=== PATIENT | female | born 1965 | race Caucasian/White ===

== ENCOUNTER → 2016-07-22 | Outpatient (CLI) | payer BC ==
[~2016-07-22] MED LIST: AMPH10TA2 PO; ESTR0.05 TOP; PROG1CAP2 PO
--- NOTE | 2016-07-22 16:57 | MAMMOGRAPHY REPORT ---
BILATERAL DIGITAL SCREENING MAMMOGRAM TOMOSYNTHESIS WITH CAD: 07/22/2016 CLINICAL HISTORY: Routine screening. Patient has no complaints. TECHNIQUE: Breast tomosynthesis in addition to standard 2D mammography was performed. Current study was also evaluated with a Computer Aided Detection (CAD) system. COMPARISON: Comparison is made to exams dated: 07/18/2015 mammogram, 04/25/2015 ultrasound, 04/25/2015 mammogram, 07/30/2014 mammogram, 07/30/2014 ultrasound, and 07/17/2014 mammogram - [facility]. BREAST COMPOSITION: The tissue of both breasts is heterogeneously dense, which may obscure small ma sses. FINDINGS: The parenchymal pattern is unchanged. No developing mass, architectural distortion or clu ster of suspicious microcalcifications is seen in either breast. IMPRESSION: ACR BI-RADS CATEGORY 2: BENIGN There is no mammographic evidence of malignancy. A 1 year screening mammogram is recommended. The p atient will receive written notification of the results. Approximately 10% of breast cancers are not detected with mammography. A negative mammographic repor t should not delay biopsy if a clinically suggestive mass is present. Soraya Thornton M.D. ay/:07/22/2016 16:12:18 Buildings And Grounds Superintendent: Rut Bartlett, [facility] letter sent: Normal 1/2 BI-RADS Code: ACR BI-RADS Category 2: Benign
== END | disposition home or self-care (01) ==
LOC: C.MAMM 07:34
PROVIDERS: ATTEND Obstetrics & Gynecology
DX: Z12.31 Encounter for screening mammogram for malignant neoplasm of breast (principal)

== ENCOUNTER → 2017-03-08 | Outpatient (CLI) | payer BC ==
--- NOTE | 2017-03-08 09:41 | DIAGNOSTIC IMAGING REPORT ---
CHEST 2 VIEWS ROUTINE HISTORY: 51 years-old Female Z01.818 G51.3 preoperative exam. No acute chest complaints. COMPARISON: Chest radiograph 06/21/2014 TECHNIQUE: PA and lateral views of the chest FINDINGS: Heart and mediastinal and hilar silhouettes are within normal limits. There is no pneumothorax, pleural effusion, focal airspace consolidation or overt pulmonary edema. Ill-defined opacity of the left lung base on the frontal view suggest composite density artifact. Lungs are mildly hyperinflated with diaphragmatic flattening. The bones of the chest are grossly intact. IMPRESSION: Hyperinflation without acute cardiopulmonary process. The above report was generated using voice recognition software. It may contain grammatical, syntax or spelling errors. Electronically signed by: Shaggy Sanchez M.D. 03/08/2017 9:39 AM Dictated Date/Time: 03/08/2017 9:37 AM
[2017-03-08 11:07] LABS: BASO % 0.3 %; BASO ABS # 0.02 K/uL (0-0.2); COMPLETE YES; EOS % 2.5 %; HEMATOCRIT 40.9 % (37-47); IG% 0.2 %; LYMPH % 15.2 %; LYMPH ABS # 0.99 K/uL (1.2-3.4); MEAN CELL VOLUME 93.2 fL (80-100); MEAN CORPUSCULAR HEMOGLOBIN 29.8 pg (25-34); MEAN PLATELET VOLUME 10.5 fL (7.4-10.4); MONO % 6.4 %; NEUT % 75.4 %; PLATELET COUNT 208 K/uL (130-400); RED BLOOD COUNT 4.39 M/uL (4.2-5.4); WHITE BLOOD COUNT 6.53 K/uL (4.8-10.8)
[2017-03-08 11:16] LABS: PARTIAL THROMBOPLASTIN RATIO 1.1
[2017-03-08 11:25] LABS: URINE APPEARANCE CLEAR (CLEAR); URINE COLOR DK YELLOW; URINE NITRITE NEG (NEG); URINE SPECIFIC GRAVITY 1.023 (1.000-1.030); UROBILINOGEN NEG (NEG)
[2017-03-08 11:31] LABS: MANUAL MICROSCOPIC REQUIRED? NO; REVIEW REQ? NO; URINE BILIRUBIN NEG (NEG)
[2017-03-08 11:32] LABS: ALT/SGPT 32 U/L (12-78); AST/SGOT 22 U/L (15-37); BLOOD UREA NITROGEN 15 mg/dl (7-18); BUN/CREATININE RATIO 16.1 (10-20); CALCIUM 8.8 mg/dl (8.5-10.1); CARBON DIOXIDE 26 mmol/L (21-32); CHLORIDE 104 mmol/L (98-107); GLUCOSE 112 mg/dl (70-99); POTASSIUM 3.6 mmol/L (3.5-5.1); SODIUM 138 mmol/L (136-145)
[2017-03-08 11:35] LABS: ALB/GLOB RATIO 1.2 (0.9-2); ALKALINE PHOSPHATASE 74 U/L (45-117)
== END | disposition home or self-care (01) ==
LOC: C.RADBC 08:58
PROVIDERS: ATTEND Nurse Practitioner Family
DX: Z01.818 Encounter for other preprocedural examination (principal); G51.3 Clonic hemifacial spasm

== ENCOUNTER → 2017-03-17 | Outpatient (CLI) | payer BC | END | disposition home or self-care (01) | LOC: C.CPL 09:58 | PROVIDERS: ATTEND Nurse Practitioner Family | DX: Z01.818 Encounter for other preprocedural examination (principal); G51.3 Clonic hemifacial spasm; R94.31 Abnormal electrocardiogram [ECG] [EKG] ==

== ENCOUNTER 2021-12-22 17:13 | Observation (INO) ==
[2021-12-22] MEDS ORDERED: SODIUM CHLORIDE 0.9% 1000ML 1,000 ML IV STA (17:53)
[2021-12-22] MEDS ORDERED: MoRPHine SULFATE 4 MG/ML 1 ML CARP\\VIAL IV STA (17:53)
[2021-12-22 18:46] LABS: Alanine Aminotransferase 11 U/L (7-52); Albumin Globulin Ratio 1.9 (0.9-2); Albumin Level 4.6 gm/dl (3.4-5.0); Alkaline Phosphatase 87 U/L (34-104); Anion Gap 10 (3-11); Aspartate Aminotransferase 12 U/L (13-39); BUN Creatinine Ratio 21.4 (10-20); Bilirubin,Total 0.5 mg/dl (0.2-1.0); Blood Urea Nitrogen 18 mg/dl (6-23); Calcium 9.5 mg/dl (8.5-10.1); Carbon Dioxide 25 mmol/L (21-32); Chloride 104 mmol/L (98-107); Creatinine Clr Calc Pharmacy 77.2 ml/min; Est GFR (African American) 91.3 ml/min; Est GFR (Non-African American) 78.8 ml/min; Globulin 2.4 gm/dl (2.5-4.0); Glucose 96 mg/dl (70-99(Fasting)); Lipase 13 U/L (11-82); Potassium 3.6 mmol/L (3.5-5.1); Sodium 139 mmol/L (136-145)
--- NOTE | 2021-12-22 19:06 | Emergency Department Note ---
Impression & Plan Acute abdominal pain, Nausea, Abdominal lymphadenopathy ED Provider Note CHIEF COMPLAINT: Lower abdominal pain, nausea HISTORY OF PRESENTING ILLNESS: This is a 56-year-old female who presents to the emergency department via EMS with complaint of low abdominal pain that has been ongoing for the past 4-5 days but got severe today. She has been taking Pepto- Bismol for the past few days for her symptoms, which she states was helping, but it did not help today. Patient states she had a sensation like she might need to move her bowels and she went to the bathroom, but was unable to have a bowel movement. She did urinate at that time without difficulty. She states the pain became severe and she describes it as cramping and sharp, she was doubled over in pain and also became diaphoretic. She states she was unable to get comfortable in any position with the pain. The pain is in her central lower abdomen overlying the bladder and radiates to the right side slightly. She denies any pain going into her back. She denies any numbness, tingling, or weakness of the extremities. She denies any chest pain, shortness of breath, palpitations, dizziness or syncope. EMS gave the patient IV fentanyl and Zofran, which did improve her symptoms somewhat. She currently rates her pain level 6/10 (decreased from 9/10) after receiving fentanyl and states she is feeling significantly better. REVIEW OF SYSTEMS: A complete 10 point review of systems was reviewed with the patient with pertinent positives and negatives as per history of present illness. All else were negative. PAST MEDICAL HISTORY: ADHD, history of D&C and umbilical hernia repair SOCIAL HISTORY: Lives at home with family, denies tobacco use ALLERGIES: Reviewed in chart and with the patient PHYSICAL EXAM: CONSTITUTIONAL: Pleasant and cooperative. Nontoxic-appearing and in no acute distress. Non-diaphoretic. Well appearing and well nourished. HEENT: Normocephalic, atraumatic. NECK: Supple, full active range of motion without discomfort. RESPIRATORY: Clear to auscultation bilaterally with no wheezing, crackles, rhonchi or stridor. Equal expansion bilaterally. CARDIOVASCULAR: Regular rate and rhythm with no murmurs, rubs or gallops. Normal peripheral perfusion. No edema. GASTROINTESTINAL: Tender to palpation in the suprapubic and right lower quadrant abdomen, slight guarding in RLQ. No rebound tenderness. Abdomen is soft and nondistended. No palpable masses or HSM. Bowel sounds present in all quadrants. No CVA tenderness bilaterally. MUSCULOSKELETAL: Full range of motion of all joints without discomfort. INTEGUMENTARY: No rash or other significant dermatologic conditions noted. NEUROLOGIC: Alert and oriented X 4 with normal affect. Normal strength and sensation in all 4 extremities. Normal speech. ED COURSE AND MEDICAL DECISION MAKING: CC: Patient presenting with complaint of abdominal pain DIFFERENTIAL DIAGNOSIS: Includes, but not limited to appendicitis, ovarian cyst, PID, infections, diverticulitis, UTI, bowel obstruction, aortic pathology, inflammatory bowel disease, renal colic, hernia, volvulus, constipation, gastroenteritis, colitis, among others. INTERPRETATION OF LABS: No leukocytosis, no anemia, normal platelets, no significant electrolyte abnormalities, normal renal function, normal liver enzymes and lipase. UA appears to be a contaminated specimen, urine culture pending. EKG: Shows normal sinus rhythm with a rate of 84 bpm, normal intervals, no ectopy, T wave abnormalities do not appear to be significantly changed when compared to previous EKG from 03/17/2017 by my interpretation. MEDICATION RECONCILIATION: I attest that I have personally reviewed the patient's current medication list. INITIAL VITAL SIGNS REVIEW: I reviewed the patient's initial vital signs and interpret them as follows: T: Afebrile; BP: Normotensive; HR: Within normal limits; RR: Within normal limits; Pulse Ox: Within normal limits on room air. MDM SUMMARY: Patient was evaluated at bedside, history and physical exam performed. Patient is alert and oriented, in no acute distress, resting calmly in the stretcher. She is afebrile and nontoxic-appearing, and hemodynamically stable. She has moderate tenderness to palpation in the lower abdomen, most tender over the right lower quadrant with slight guarding. No acute abdomen. Cardiac monitoring: An order was placed for continuous cardiac monitoring. The monitor shows a rate of 77 bpm with normal sinus rhythm. Orders were placed for labs, UA, EKG and troponin to evaluate for cardiac causes, IV fluid bolus for hydration and IV morphine for pain, CT abdomen/pelvis with IV contrast to evaluate for abdominal pain. Patient discussed with Dr. Lynn, who agrees with my assessment, plan, and disposition. Labs and imaging reviewed, no leukocytosis, no significant abnormalities on labs. No UTI. CT imaging demonstrates soft tissue stranding and prominent lymph nodes in the right lower quadrant which may represent secondary findings of appendicitis, though the appendix is not definitely identified. I spoke on the phone with Dr. Christopher, general surgery, who did not feel that the patient needed urgent surgical intervention, and recommended admitting her to the medicine team for observation and IV antibiotics. I reassessed the patient and updated her on results and plan for observation, she was agreeable. She did decline the morphine that was ordered earlier, but states she would like something for pain. IV Toradol was ordered. IV cefoxitin was also ordered for antibiotic coverage. I spoke with the [facility] regarding admission, they agreed to evaluate the patient. Patient was stable at the time of admission. The chart was completed utilizing [employer] Speech voice recognition software. Grammatical errors, random word insertions, pronoun errors, and incomplete sentences are an occasional consequence of this system due to software limitations, ambient noise, and hardware issues. Any formal questions or concerns about the content, text, or information contained within the body of this dictation should be directly addressed to the nurse practitioner for clarification. Past Med/Surg History Surgical History (Updated 02/02/20 @ 15:08 by Debra Miranda) History of cryosurgery cervix History of D&C D&E History of detached retina repair History of laparoscopy exploratory History of oral surgery Tooth extraction History of umbilical hernia repair Hx of LASIK Family History (Updated 02/02/20 @ 15:09 by Debra Miranda) Grandfather (Paternal) Coronary heart disease Grandfather (Maternal) Coronary heart disease Father Diaphragmatic hernia Denies family history of Ovarian cancer Breast cancer Colorectal cancer Social History (Updated 02/12/21 @ 14:30 by ENRICO Farah) Smoking Status: Never smoker Second Hand Exposure: No; Do You Dip or Chew Tobacco: No; Hx Alcohol Use: Yes Alcohol type: wine Hx Substance Use: No Preferred Language: Kyrgyz 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 Beliefs That Will Affect Care: None Current Living Situation: Family Current Living Situation Comment: Single family home with and kids Other Information That Helps Us Care for You: Yes (Increase in lower GI issues in last year) Feels Safe at Home: Yes Safety Concerns: Feels Safe At This Time Assistive Devices: None Allergies Allergies Allergy/AdvReac Type Severity Reaction Status Date / Time shrimp Allergy Intermediate RASH;LIPS Verified 02/12/21 14:29 SWELL Sulfa (Sulfonamide Allergy Mild "SULFA Verified 02/12/21 14:29 Antibiotics) DRUGS": RASH shellfish derived Allergy Verified 02/12/21 14:29 Home Meds Home Medications Medication Instructions Recorded Confirmed calcium citrate 315 mg-vitamin D3 tab PO 02/02/20 09/19/21 5 mcg (200 unit) tablet dextroamphetamine-amphetamine 15 PO .TAKE 1 TABLET DAILY 02/02/20 09/19/21 mg tablet DIRECTED. multivitamin (Multiple Vitamins 1 tab PO DAILY 02/02/20 09/19/21 tablet) omega-3 fatty acids PO 02/02/20 09/19/21 vitamin B complex PO 02/02/20 09/19/21 doxycycline calcium PO 02/08/20 09/19/21 Previous Rx's Medication Instructions Recorded estradiol 0.05 mg/24 hr semiweekly 1 patch transdermal 2XWK #24 ea 02/12/21 transdermal patch (Vivelle-Dot) progesterone micronized 200 mg 200 mg PO .COMPLEX #30 caps 07/04/21 capsule Results & Data (ED) Vital Signs Vital Signs - 24 hr 12/22/21 17:19 12/22/21 18:26 12/22/21 19:42 Temperature 36.4 C L Temperature Source Temporal Artery Scan Pulse Rate 74 Pulse Rate [Apical] 85 Pulse Rhythm Regular Pulse Strength Normal Respiratory Rate 20 18 Respiratory Effort / Characteristics Non-Labored Spontaneous Non-Labored Respiratory Depth Normal Normal Respiratory Pattern Regular Blood Pressure 119/81 Blood Pressure [Left Arm] 114/73 Blood Pressure Mean 93 Blood Pressure Mean [Left Arm] 86 Blood Pressure Position Sitting Pulse Oximetry 100 98 98 Oxygen Delivery Method Room Air Room Air Room Air Sepsis Recent Fever Within 48 Hours No Sepsis New/Unexplained Change in Mental Status No Sepsis Action Taken by Nursing No Action Required 12/22/21 23:21 Temperature Temperature Source Pulse Rate Pulse Rate [Apical] 91 H Pulse Rhythm Pulse Strength Respiratory Rate 22 Respiratory Effort / Characteristics Respiratory Depth Respiratory Pattern Blood Pressure Blood Pressure [Left Arm] 97/62 L Blood Pressure Mean Blood Pressure Mean [Left Arm] 73 Blood Pressure Position Pulse Oximetry 98 Oxygen Delivery Method Room Air Sepsis Recent Fever Within 48 Hours Sepsis New/Unexplained Change in Mental Status Sepsis Action Taken by Nursing Laboratory Data Result diagrams: 12/23/21 09:20 12/23/21 09:20 Lab Results 12/22/21 12/22/21 12/22/21 Range/Units 17:35 17:35 21:04 WBC 6.49 (4.8-10.8) K/ul RBC 5.30 H (3.93-5.22) M/uL Hgb 15.7 (12.0-16.0) g/dl Hct 48.5 H (34.1-44.9) % MCV 91.5 (80.0-100.0) fL MCH 29.6 (25.0-34.0) pg MCHC 32.4 (32.0-36.0) g/dL RDW Std Deviation 43.8 (36.4-46.3) fL RDW Coeff of Jade 12.9 (11.5-14.5) % Plt Count 164 (130-400) K/uL MPV 10.8 (9.4-12.3) fL Immature Gran % (Auto) 0.2 % Neut % (Auto) 80.2 % Lymph % (Auto) 14.2 % Millard % (Auto) 3.2 % Eos % (Auto) 2.0 % Baso % (Auto) 0.2 % Neut # (Auto) 5.21 (1.4-6.5) K/uL Lymph # (Auto) 0.92 L (1.2-3.4) K/uL Millard # (Auto) 0.21 L (0.24-0.82) K/uL Eos # (Auto) 0.13 (0-0.50) K/uL Baso # (Auto) 0.01 (0-0.2) K/uL Immature Gran # (Auto) 0.01 (0.00-0.02) K/uL Sodium 139 (136-145) mmol/L Potassium 3.6 (3.5-5.1) mmol/L Chloride 104 (98-107) mmol/L Carbon Dioxide 25 (21-32) mmol/L Anion Gap 10 (3-11) BUN 18 (6-23) mg/dl Creatinine 0.84 (0.6-1.2) mg/dl Est Cr Clr Drug Dosing 77.2 ml/min Est GFR ( Amer) 91.3 ml/min Est GFR (Non-Af Amer) 78.8 ml/min BUN/Creatinine Ratio 21.4 H (10-20) Glucose 96 (70-99(Fasting)) mg/dl Calcium 9.5 (8.5-10.1) mg/dl Total Bilirubin 0.5 (0.2-1.0) mg/dl AST 12 L (13-39) U/L ALT 11 (7-52) U/L Alkaline Phosphatase 87 (34-104) U/L Troponin I High Sens < 2.3 (0-14) pg/ml Total Protein 7.0 (6.0-8.3) gm/dl Albumin 4.6 (3.4-5.0) gm/dl Globulin 2.4 L (2.5-4.0) gm/dl Albumin/Globulin Ratio 1.9 (0.9-2) Lipase 13 (11-82) U/L Urine Color Yellow Urine Appearance Clear (Clear) Urine pH 5.5 (4.5-7.5) Ur Specific [place] 1.023 (1.000-1.030) Urine Protein Negative (Negative) Urine Glucose (UA) Negative (Negative) Urine Ketones Negative (Negative) Urine Blood Negative (Negative) Urine Nitrite Negative (Negative) Urine Bilirubin Negative (Negative) Urine Urobilinogen Negative (Negative) Ur Leukocyte Esterase Trace H (Negative) Urine WBC (Auto) 1-5 (0-5) /hpf Urine RBC (Auto) 0-4 (0-4) /hpf U Hyaline Cast (Auto) 5-10 H (0-5) /lpf U Epithel Cells (Auto) >30 H (0-5) /lpf Urine Bacteria (Auto) 1+ H (Negative) Administered Medications Acetaminophen (Acetaminophen 325 Mg Tab) 650 mg PO Q4H PRN PRN Reason: Pain or Fever Stop: 01/22/22 01:57 Last Admin: 12/23/21 03:39 Dose: 650 mg Documented By: ADAMA Sodium Chloride (Nss 1000ml) 1,000 mls @ 125 mls/hr IV .Q8H NUVIA Stop: 01/21/22 21:59 Last Admin: 12/23/21 06:14 Dose: 125 mls/hr Documented By: Infusion: 12/23/21 06:12 Dose: 125 mls/hr Documented By: Admin: 12/22/21 22:12 Dose: 125 mls/hr Documented By: DENA Cefoxitin Sodium (Mefoxin) 2,000 mg in 60 mls @ 100 mls/hr IV Q6H NUVIA Stop: 01/02/22 05:59 Last Infusion: 12/23/21 07:26 Dose: 0 mls/hr Documented By: Admin: 12/23/21 06:14 Dose: 100 mls/hr Documented By: KJL Discontinued Medications Sodium Chloride (Nss 1000ml) 1,000 mls @ 999 mls/hr IV .Q1H1M STA Stop: 12/22/21 18:53 Last Infusion: 12/22/21 19:30 Dose: 0 mls/hr Documented By: Admin: 12/22/21 18:13 Dose: 999 mls/hr Documented By: DENA Cefoxitin Sodium (Mefoxin) 2,000 mg in 60 mls @ 100 mls/hr IV NOW STA Stop: 12/22/21 22:35 Last Infusion: 12/22/21 23:22 Dose: 0 mls/hr Documented By: Admin: 12/22/21 22:12 Dose: 100 mls/hr Documented By: DENA Ioversol (Optiray 300 100ml) 91 ml IV ONCE ONE Stop: 12/22/21 19:14 Last Admin: 12/22/21 19:14 Dose: 91 ml Documented By: ALFREDO Ketorolac Tromethamine (Ketorolac Tromethamine 15 Mg/Ml Vial) 15 mg IV NOW STA Stop: 12/22/21 22:01 Last Admin: 12/22/21 22:12 Dose: 15 mg Documented By: DENA Ketorolac Tromethamine (Ketorolac Tromethamine 15 Mg/Ml Vial) 10 mg IV NOW ONE Stop: 12/23/21 01:35 Last Admin: 12/23/21 01:40 Dose: 10 mg Documented By: RIVER Morphine Sulfate (Morphine Sulfate 4 Mg/Ml 1 Ml Carp\\Vial) 4 mg IV NOW STA Stop: 12/22/21 17:54 Last Admin: 12/22/21 20:17 Dose: Not Given Documented By: DENA Imaging Data Radiologist's Impression: Abdomen/Pelvis CT 12/22/21 17:53 CT abd pelvis IV con only CLINICAL HISTORY: diffuse lower/RLQ pain, nausea TECHNIQUE: Helical axial images of the abdomen and pelvis were obtained and displayed. Automated dose lowering techniques and/or adjustment according to patient size were utilized for this exam. This exam was performed with intravenous contrast. CT DOSE: 257.82 mGy.cm COMPARISON: None available at the time of this dictation. FINDINGS: Lower chest: Bibasilar atelectasis versus scarring is seen. Liver: Focal fatty changes are noted about the falciform ligament. Gallbladder and biliary tree: No calcified gallstones. Normal caliber wall. No intra- or extrahepatic biliary ductal dilation. Pancreas: Unremarkable, no focal lesions. Spleen: Unremarkable. Adrenals: Unremarkable. Kidneys and ureters: Unremarkable. Bladder: Unremarkable. Reproductive organs: Unremarkable. Bowel: Extensive diverticulosis is seen. There is a moderate hiatal hernia. The appendix is not definitely seen. Lymph nodes Retroperitoneal: Unremarkable. Pelvic: Unremarkable. Mesenteric: Prominent subcentimeter lymph nodes are in the right lower quadrant. Peritoneum: Fat stranding is in the right lower quadrant. There is a small amount of free fluid in the pelvis. Vessels: Unremarkable. Abdominal wall: Unremarkable. Bones: Unremarkable. IMPRESSION: The appendix is not definitely identified. However, soft tissue stranding and prominent reactive lymph nodes are in the right lower quadrant which may represent secondary findings of appendicitis. No evidence of perforation or absc ess formation is seen. ACT 112: Negative or not required by law. Electronically signed by: Lev Guidry M.D. 12/22/2021 8:27 PM Discharge Plan Visit Data Chief Complaint: Abdominal Pain Stated Complaint: ABD PAIN ED Provider: Alice Lynn ED Midlevel Provider: Tessy Magallon Discharge Problem: Acute abdominal pain, Nausea, Abdominal lymphadenopathy Patient Disposition: Admitted As Inpatient Condition: Good Discharge Instructions Interventions: ED Discharge Assessment Last Done: 12/23/21 01:37
[2021-12-22 19:11] LABS: Hematocrit (blood only) 48.5 % (34.1-44.9); Hemoglobin 15.7 g/dl (12.0-16.0); Mean Corpuscular Hemoglobin 29.6 pg (25.0-34.0); Mean Corpuscular Hgb Conc 32.4 g/dL (32.0-36.0); Mean Corpuscular Volume 91.5 fL (80.0-100.0); Mean Platelet Volume 10.8 fL (9.4-12.3); Platelet Count 164 K/uL (130-400); RDW Coefficient of Variation 12.9 % (11.5-14.5); RDW Standard Deviation 43.8 fL (36.4-46.3); White Blood Count 6.49 K/ul (4.8-10.8)
[2021-12-22 19:12] LABS: Basophils # (auto) 0.01 K/uL (0-0.2); Basophils % (auto) 0.2 %; Eosinophils # (auto) 0.13 K/uL (0-0.50); Immature Granulocytes # (auto) 0.01 K/uL (0.00-0.02); Immature Granulocytes % (auto) 0.2 %; Lymphocytes # (auto) 0.92 K/uL (1.2-3.4); Lymphocytes % (auto) 14.2 %; Monocytes # (auto) 0.21 K/uL (0.24-0.82); Monocytes % (auto) 3.2 %; Neutrophils # (auto) 5.21 K/uL (1.4-6.5); Neutrophils % (auto) 80.2 %
[2021-12-22] MEDS ORDERED: OPTIRAY 300 100mL IV ONE (19:13)
--- NOTE | 2021-12-22 20:30 | CT Scan Report ---
CT abd pelvis IV con only CLINICAL HISTORY: diffuse lower/RLQ pain, nausea TECHNIQUE: Helical axial images of the abdomen and pelvis were obtained and displayed. Automated dose lowering techniques and/or adjustment according to patient size were utilized for this exam. This e xam was performed with intravenous contrast. CT DOSE: 257.82 mGy.cm COMPARISON: None available at the time of this dictation. FINDINGS: Lower chest: Bibasilar atelectasis versus scarring is seen. Liver: Focal fatty changes are noted about the falciform ligament. Gallbladder and biliary tree: No calcified gallstones. Normal caliber wall. No intra- or extrahepatic biliary ductal dilation. Pancreas: Unremarkable, no focal lesions. Spleen: Unremarkable. Adrenals: Unremarkable. Kidneys and ureters: Unremarkable. Bladder: Unremarkable. Reproductive organs: Unremarkable. Bowel: Extensive diverticulosis is seen. There is a moderate hiatal hernia. The appendix is not defin itely seen. Lymph nodes Retroperitoneal: Unremarkable. Pelvic: Unremarkable. Mesenteric: Prominent subcentimeter lymph nodes are in the right lower quadrant. Peritoneum: Fat stranding is in the right lower quadrant. There is a small amount of free fluid in th e pelvis. Vessels: Unremarkable. Abdominal wall: Unremarkable. Bones: Unremarkable. IMPRESSION: The appendix is not definitely identified. However, soft tissue stranding and prominent reactive lymp h nodes are in the right lower quadrant which may represent secondary findings of appendicitis. No ev idence of perforation or abscess formation is seen. ACT 112: Negative or not required by law. Electronically signed by: Lev Guidry M.D. 12/22/2021 8:27 PM
[2021-12-22 20:33] LABS: Troponin I High Sensitivity < 2.3 pg/ml (0-14)
[2021-12-22 21:24] LABS: Appearance Urine Clear (Clear); Bacteria Urine Automated 1+ (Negative); Bilirubin Urine Negative (Negative); Blood Urine Negative (Negative); Color Urine Yellow; Epithelial Cell Urine Auto >30 /lpf (0-5); Glucose Urine UA Negative (Negative); Ketones Urine Negative (Negative); Leukocyte Esterase Urine Trace (Negative); Nitrite Urine Negative (Negative); Protein Urine Negative (Negative); Specific Gravity Urine 1.023 (1.000-1.030); Urobilinogen Urine Negative (Negative); pH Urine 5.5 (4.5-7.5)
[2021-12-22 21:51] LABS: RBC Urine Automated 0-4 /hpf (0-4)
[2021-12-22] MEDS ORDERED: cefOXitin 2,000 MG/60 ML BAG IV STA (22:00)
[2021-12-22] MEDS ORDERED: KETOROLAC TROMETHAMINE 15 MG/ML VIAL IV STA (22:00)
[2021-12-22] MEDS: SODIUM CHLORIDE 0.9% 1000ML 1,000 ML IV SCH (22:12)
--- NOTE | 2021-12-22 23:44 | History & Physical Report ---
Date of Service December 22, 2021 Assessment & Plan (1) Acute abdominal pain: Plan: 56 yo female with no significant PMHx presented with 4-5 days abdominal pain with exacerbation this morning. Abdominal pain -presented with 4-5 days abdominal pain in exacerbation this morning. Afebrile. No leukocytosis. Case was discussed amongst ED provider and general surgery Dr. Christopher who said no urgent surgical intervention and recommended admitting for observation on IV abx. -UA dirty catch, possibly infectious -trops neg -CT A/P: soft tissue stranding and prominent lymph nodes in the right lower quadrant which may represent secondary findings of appendicitis, though the appendix is not definitely identified. -NPO for now, IVF, pain relief, anti-nausea -cefoxitin started in ED. Cont. 2g cefoxitin q6h which includes anaerobic coverage -general surgery consulted DVT ppx: SCDs FEN/GI: NPO Code Status: full Dispo: med tele (2) Abdominal lymphadenopathy: (3) Nausea: History of Present Illness Chief Complaint: abdominal pain Primary Care Provider: Shiva Guthrie MD 56 yo female with no significant PMHx presented with 4-5 days abdominal pain with exacerbation this morning. Abdominal pain located midline between the bellybutton and the pelvic bone with some radiation to the right lower quadrant. Early this morning she had a sudden exacerbation of her pain symptoms and tried taking Pepto-Bismol which did not help much. She had some associated diaphoresis and nausea. Otherwise denies fevers, chills, fatigue, chest pain, shortness of breath, vomiting, dysuria, blood in stool, headache, back pain, extremity numbness/tingling, constipation, diarrhea. Has not had much of an appetite the last couple of days. She did receive IV fentanyl and Zofran from EMS which did improve her pain symptoms from a 9 to a 6 out of 10. Allergies Allergy/AdvReac Type Severity Reaction Status Date / Time shrimp Allergy Intermediate RASH;LIPS Verified 02/12/21 14:29 SWELL Sulfa (Sulfonamide Allergy Mild "SULFA Verified 02/12/21 14:29 Antibiotics) DRUGS": RASH shellfish derived Allergy Verified 02/12/21 14:29 Home Medications Medication Instructions Recorded Confirmed Type calcium citrate 315 mg-vitamin D3 tab PO 02/02/20 09/19/21 History 5 mcg (200 unit) tablet dextroamphetamine-amphetamine 15 PO .TAKE 1 TABLET DAILY 02/02/20 09/19/21 History mg tablet DIRECTED. multivitamin (Multiple Vitamins 1 tab PO DAILY 02/02/20 09/19/21 History tablet) omega-3 fatty acids PO 02/02/20 09/19/21 History vitamin B complex PO 02/02/20 09/19/21 History doxycycline calcium PO 02/08/20 09/19/21 History estradiol 0.05 mg/24 hr semiweekly 1 patch transdermal 2XWK #24 ea 02/12/21 09/19/21 Rx transdermal patch (Vivelle-Dot) progesterone micronized 200 mg 200 mg PO .COMPLEX #30 caps 07/04/21 09/19/21 Rx capsule Past Med/Surg History Surgical History (Updated 02/02/20 @ 15:08 by Debra Miranda) History of cryosurgery cervix History of D&C D&E History of detached retina repair History of laparoscopy exploratory History of oral surgery Tooth extraction History of umbilical hernia repair Hx of LASIK Family History (Updated 02/02/20 @ 15:09 by Debra Miranda) Grandfather (Paternal) Coronary heart disease Grandfather (Maternal) Coronary heart disease Father Diaphragmatic hernia Denies family history of Ovarian cancer Breast cancer Colorectal cancer Social History (Updated 02/12/21 @ 14:30 by ENRICO Farah) Smoking Status: Never smoker Second Hand Exposure: No; Do You Dip or Chew Tobacco: No; Hx Alcohol Use: Yes Alcohol type: wine Hx Substance Use: No Preferred Language: [employer] Required: No Beliefs That Will Affect Care: None Current Living Situation: Family Current Living Situation Comment: Single family home with and kids Other Information That Helps Us Care for You: Yes (Increase in lower GI issues in last year) Feels Safe at Home: Yes Safety Concerns: Feels Safe At This Time Assistive Devices: None Review of Systems Review of Systems: All systems reviewed & are unremarkable except as noted in HPI & below Physical Exam Physical Exam: Constitutional: Well-developed, well-nourished patient, in no acute distress, pleasant, intact memory. Vitals as above. HEENT: No scleral injection or discharge. Moist mucous membranes. Clear oropharynx without exudate. Neck: Supple without lymphadenopathy or thyromegaly. Trachea midline. Lungs: Clear to auscultation bilaterally with good effort. Cardiac: Regular rate and rhythm. No murmurs. 2+ peripheral pulses. No LE edema. Abdomen: Bowel sounds present. Soft and nondistended.Moderate tenderness RUQ and midline inferior to umbilicus. No guarding or rebound tenderness.No hepatosplenomegaly. MSK: No cyanosis or clubbing. Extremities motor strength 5/5. Skin: No rashes, warm, dry. Neurologic: No focal deficits. PERRL. Results & Data Results & Data ([facility]) Vital Signs (Past 12 Hours) Vital Signs Temp Pulse Pulse Resp BP BP Pulse Ox 12/22/21 23:21 91 H 22 97/62 L 98 12/22/21 19:42 85 18 114/73 98 12/22/21 18:26 98 12/22/21 17:19 36.4 C L 74 20 119/81 100 O2 Del Method 12/22/21 23:21 Room Air 12/22/21 19:42 Room Air 12/22/21 18:26 Room Air 12/22/21 17:19 Room Air Laboratory Results Laboratory Results WBC 6.49 K/ul (4.8-10.8) 12/22/21 17:35 RBC 5.30 M/uL (3.93-5.22) H 12/22/21 17:35 Hgb 15.7 g/dl (12.0-16.0) 12/22/21 17:35 Hct 48.5 % (34.1-44.9) H 12/22/21 17:35 MCV 91.5 fL (80.0-100.0) 12/22/21 17:35 MCH 29.6 pg (25.0-34.0) 12/22/21 17:35 MCHC 32.4 g/dL (32.0-36.0) 12/22/21 17:35 RDW Std Deviation 43.8 fL (36.4-46.3) 12/22/21 17:35 RDW Coeff of Jade 12.9 % (11.5-14.5) 12/22/21 17:35 Plt Count 164 K/uL (130-400) 12/22/21 17:35 MPV 10.8 fL (9.4-12.3) 12/22/21 17:35 Immature Gran % (Auto) 0.2 % 12/22/21 17:35 Neut % (Auto) 80.2 % 12/22/21 17:35 Lymph % (Auto) 14.2 % 12/22/21 17:35 [place] % (Auto) 3.2 % 12/22/21 17:35 Eos % (Auto) 2.0 % 12/22/21 17:35 Baso % (Auto) 0.2 % 12/22/21 17:35 Neut # (Auto) 5.21 K/uL (1.4-6.5) 12/22/21 17:35 Lymph # (Auto) 0.92 K/uL (1.2-3.4) L 12/22/21 17:35 [place] # (Auto) 0.21 K/uL (0.24-0.82) L 12/22/21 17:35 Eos # (Auto) 0.13 K/uL (0-0.50) 12/22/21 17:35 Baso # (Auto) 0.01 K/uL (0-0.2) 12/22/21 17:35 Immature Gran # (Auto) 0.01 K/uL (0.00-0.02) 12/22/21 17:35 Sodium 139 mmol/L (136-145) 12/22/21 17:35 Potassium 3.6 mmol/L (3.5-5.1) 12/22/21 17:35 Chloride 104 mmol/L (98-107) 12/22/21 17:35 Carbon Dioxide 25 mmol/L (21-32) 12/22/21 17:35 Anion Gap 10 (3-11) 12/22/21 17:35 BUN 18 mg/dl (6-23) 12/22/21 17:35 Creatinine 0.84 mg/dl (0.6-1.2) 12/22/21 17:35 Est Cr Clr Drug Dosing 77.2 ml/min 12/22/21 17:35 Est GFR ( Amer) 91.3 ml/min 12/22/21 17:35 Est GFR (Non-Af Amer) 78.8 ml/min 12/22/21 17:35 BUN/Creatinine Ratio 21.4 (10-20) H 12/22/21 17:35 Glucose 96 mg/dl (70-99(Fasting)) 12/22/21 17:35 Calcium 9.5 mg/dl (8.5-10.1) 12/22/21 17:35 Total Bilirubin 0.5 mg/dl (0.2-1.0) 12/22/21 17:35 AST 12 U/L (13-39) L 12/22/21 17:35 ALT 11 U/L (7-52) 12/22/21 17:35 Alkaline Phosphatase 87 U/L (34-104) 12/22/21 17:35 Troponin I High Sens < 2.3 pg/ml (0-14) 12/22/21 17:35 Total Protein 7.0 gm/dl (6.0-8.3) 12/22/21 17:35 Albumin 4.6 gm/dl (3.4-5.0) 12/22/21 17:35 Globulin 2.4 gm/dl (2.5-4.0) L 12/22/21 17:35 Albumin/Globulin Ratio 1.9 (0.9-2) 12/22/21 17:35 Lipase 13 U/L (11-82) 12/22/21 17:35 Urine Color Yellow 12/22/21 21:04 Urine Appearance Clear (Clear) 12/22/21 21:04 Urine pH 5.5 (4.5-7.5) 12/22/21 21:04 Ur Specific Dexter 1.023 (1.000-1.030) 12/22/21 21:04 Urine Protein Negative (Negative) 12/22/21 21:04 Urine Glucose (UA) Negative (Negative) 12/22/21 21:04 Urine Ketones Negative (Negative) 12/22/21 21:04 Urine Blood Negative (Negative) 12/22/21 21:04 Urine Nitrite Negative (Negative) 12/22/21 21:04 Urine Bilirubin Negative (Negative) 12/22/21 21:04 Urine Urobilinogen Negative (Negative) 12/22/21 21:04 Ur Leukocyte Esterase Trace (Negative) H 12/22/21 21:04 Urine WBC (Auto) 1-5 /hpf (0-5) 12/22/21 21:04 Urine RBC (Auto) 0-4 /hpf (0-4) 12/22/21 21:04 U Hyaline Cast (Auto) 5-10 /lpf (0-5) H 12/22/21 21:04 U Epithel Cells (Auto) >30 /lpf (0-5) H 12/22/21 21:04 Urine Bacteria (Auto) 1+ (Negative) H 12/22/21 21:04 Impressions Abdomen/Pelvis CT 12/22/21 17:53 CT abd pelvis IV con only CLINICAL HISTORY: diffuse lower/RLQ pain, nausea TECHNIQUE: Helical axial images of the abdomen and pelvis were obtained and displayed. Automated dose lowering techniques and/or adjustment according to patient size were utilized for this exam. This exam was performed with intravenous contrast. CT DOSE: 257.82 mGy.cm COMPARISON: None available at the time of this dictation. FINDINGS: Lower chest: Bibasilar atelectasis versus scarring is seen. Liver: Focal fatty changes are noted about the falciform ligament. Gallbladder and biliary tree: No calcified gallstones. Normal caliber wall. No intra- or extrahepatic biliary ductal dilation. Pancreas: Unremarkable, no focal lesions. Spleen: Unremarkable. Adrenals: Unremarkable. Kidneys and ureters: Unremarkable. Bladder: Unremarkable. Reproductive organs: Unremarkable. Bowel: Extensive diverticulosis is seen. There is a moderate hiatal hernia. The appendix is not definitely seen. Lymph nodes Retroperitoneal: Unremarkable. Pelvic: Unremarkable. Mesenteric: Prominent subcentimeter lymph nodes are in the right lower quadrant. Peritoneum: Fat stranding is in the right lower quadrant. There is a small amount of free fluid in the pelvis. Vessels: Unremarkable. Abdominal wall: Unremarkable. Bones: Unremarkable. IMPRESSION: The appendix is not definitely identified. However, soft tissue stranding and prominent reactive lymph nodes are in the right lower quadrant which may represent secondary findings of appendicitis. No evidence of perforation or abscess formation is seen. ACT 112: Negative or not required by law. Electronically signed by: Lev Guidry M.D. 12/22/2021 8:27 PM Supervising Physician Co-Signing Physician Notes Attending addendum: I have physically seen this patient, have supervised the medical residents activities, and agree with the H&P unless as otherwise noted. Assessment and Plan: Acute abdominal pain/possible early appendicitis- CT suggestive of possible secondary findings of appendicitis Surgery was consulted by the ED, and asked that the patient be admitted to medicine overnight N.p.o. Cefoxitin 2 g IV every 6 hours NSS + KCl 20 mEq at 100 mils per hour Zofran 4 mg IV every 6 hours as needed Famotidine 2 mg IV twice daily Remaining orders and notations as noted Resident Activity Tracking Resident Involvement: Resident Care Provided Care Provided: Adult [facility]
[2021-12-23] MEDS ORDERED: KETOROLAC TROMETHAMINE 15 MG/ML VIAL IV ONE (01:34)
[2021-12-23] MEDS ORDERED: ACETAMINOPHEN 325 MG TAB PO PRN (01:58)
[2021-12-23] MEDS ORDERED: KETOROLAC 30 MG/ML VIAL IV PRN (01:58)
[2021-12-23] MEDS ORDERED: NITROGLYCERIN SL 0.4 MG/TAB TAB SL PRN (01:58)
[2021-12-23] MEDS ORDERED: ONDANSETRON INJ 2 MG/ML 2 ML VIAL IV PRN (01:58)
[2021-12-23] MEDS: SODIUM CHLORIDE 0.9% 1000ML 1,000 ML IV SCH ×3 (06:14→23:57)
[2021-12-23] MEDS: cefOXitin 2,000 MG/60 ML BAG IV SCH ×4 (06:14→23:57)
--- NOTE | 2021-12-23 06:46 | Hospitalist Progress Note ---
Date of Service December 23, 2021 Assessment & Plan (1) Acute abdominal pain: Plan: 56 yo female with no significant PMHx presented with 4-5 days abdominal pain with exacerbation this morning. Abdominal pain -presented with 4-5 days abdominal pain in exacerbation this morning. Afebrile. No leukocytosis. Case was discussed amongst ED provider and general surgery Dr. Christopher who said no urgent surgical intervention and recommended admitting for observation on IV abx. -UA dirty catch, possibly infectious -trops neg -CT A/P: soft tissue stranding and prominent lymph nodes in the right lower quadrant which may represent secondary findings of appendicitis, though the appendix is not definitely identified. -NPO for now, IVF, pain relief, anti-nausea -cefoxitin started in ED. Cont. 2g cefoxitin q6h which includes anaerobic coverage -general surgery consulted DVT ppx: SCDs FEN/GI: NPO Code Status: full Dispo: med tele (2) Abdominal lymphadenopathy: (3) Nausea: Admission and Anticipated Discharge Date Admission Date: December 23, 2021 Subjective 56 year old female with no significant past medical history presenting with 4-5 days of abdominal pain with exacaceration yesterday morning which prompted her to come in. This morning Review of Systems 2 Review of Systems: As per HPI Results & Data Results & Data ([facility]) Vital Signs (Past 12 Hours) Vital Signs Temp Pulse Pulse Pulse Resp BP Pulse Ox 12/23/21 03:15 80 12/23/21 02:09 37.0 C 78 14 96/64 L 95 12/23/21 01:05 89 12 91/52 L 95 12/22/21 23:21 91 H 22 97/62 L 98 12/22/21 19:42 85 18 114/73 98 O2 Del Method 12/23/21 03:15 12/23/21 02:09 Room Air 12/23/21 01:05 Room Air 12/22/21 23:21 Room Air 12/22/21 19:42 Room Air
--- NOTE | 2021-12-23 08:56 | Hospitalist Progress Note ---
Date of Service December 23, 2021 Assessment & Plan (1) Acute abdominal pain: Plan: 56 yo female with no significant PMHx presented with 4-5 days abdominal pain with exacerbation this morning. -presented with 4-5 days abdominal pain in exacerbation this morning. Afebrile. No leukocytosis. Case was discussed amongst ED provider and general surgery Dr. Christopher who said no urgent surgical intervention and recommended admitting for observation on IV abx. -UA dirty catch, possibly infectious -trops neg -CT A/P: soft tissue stranding and prominent lymph nodes in the right lower quadrant which may represent secondary findings of appendicitis, though the appendix is not definitely identified. -NPO for now, IVF, pain relief, anti-nausea -cefoxitin started in ED. Cont. 2g cefoxitin q6h which includes anaerobic coverage -general surgery consulted - no surgical intervention indicated at this time. Recommended continued observation and IV abx with repeat AM CBC and CMP -repeat physical exams to assess symptom progression -US tomorrow if no improvement to sx (2) Abdominal lymphadenopathy: Plan: Noted on abdominal/pelvis CT. DDx: appendicitis, mesenteric lymphadenitis. See plan above. Plan DVT ppx: SCDs FEN/GI: NPO Code Status: full Dispo: med tele Admission and Anticipated Discharge Date Admission Date: December 23, 2021 Supervising Physician Co-Signing Physician Notes I personally examined the patient and verified all lozoya points of history and exam, discussed case, and agree with decision making with A Meci MS2 Belly pain feels better than last nightstill persistsmostly diffusely lower abdomen, but midline and right lower are worse than left lower. No fevers chills or sweats, no nausea or vomiting. Vitals noted, in general she is awake and alert pleasant no distress. HEENT normocephalic atraumatic mucous membranes moist. Breathing unlabored no accessory muscle use good effort. Skin shows no rashes no pallor or icterus. Abdomen with mild upper abdominal discomfort no guarding rebound or rigidity. Mild to moderate left lower quadrant pain to palpation and moderate to severe hypogastric/suprapubic and fairly severe right lower quadrant tenderness palpationbut no guarding rebound or rigidity. Right lower quadrant pain/abdominal painbiggest differential being appendicitis versus mesenteric adenitis. Continue antibiotics, supportive care, serial exams. Appreciate surgical input. Continue to follow closely. Subjective 56 year old female with no significant past medical history presenting with 4-5 days of abdominal pain with exacerbation yesterday morning which prompted her to come in. This morning she reports reduction of pain from 9/10 at the ED to 4/10 at resting and 6/10 with movement, laughing, coughing, abdominal wall movement with the aid of Toradol and acetaminophen pain management. Otherwise feeling stable and constitutionally well. Review of Systems Review of Systems: Constitutional: No fever, No chills, No fatigue. Respiratory: No shortness of breath, No cough, No wheezing. Cardiovascular: No lightheadedness/presyncope, No chest pain, No palpitations. Gastrointestinal: No nausea, No vomiting, No diarrhea, No constipation, No heartburn. Sub-umbilical, suprapubic abdominal pain that radiates to the right and slightly to the left 4-6/10. Does not endorse specific localization to the right side. Bloating in the upper quadrants. Musculoskeletal: No back pain, No neck pain, No joint pain, No muscle pain, No decreased range of motion, No trauma. Skin: No rash, No pruritus, No breakdown. Neurologic: No numbness, No tingling, No headache. Physical Exam Physical Exam: General: Alert and oriented, No acute distress. HEENT: Normocephalic, Nl gross hearing, moist oral mucosa. Cardiovascular: RRR. No M/R/G. Respiratory: Clear to auscultation; Respirations non-labored; Breath sounds equal. No wheezes, rales, rhonchi. Gastrointestinal: Soft. Slight distention. Decreased bowel sounds in lower quadrants. Tender to palpation in the lower quadrants - tenderness is concentrated centrally between the umbilicus and pubis. Also very tender on the right lower quadrant, greater than the left. No rebound tenderness. Negative McBurney's Point, Rovsing's Sign, Obturator Sign, Psoas Sign. Musculoskeletal: Normal range of motion, normal strength. Neurologic: Normal sensory, Normal motor function, CN II-XII grossly intact. Integumentary: Warm, Dry. Psych: Mood-affect congruence. Speech is of normal pace and content Results & Data Results & Data ([facility]) Vital Signs (Past 12 Hours) Vital Signs Temp Pulse Pulse Pulse Resp BP BP 12/23/21 15:27 87 12/23/21 11:35 36.7 C 77 12 98/63 L 12/23/21 07:46 36.6 C 74 12 96/52 L 12/23/21 07:04 74 12/23/21 03:15 80 12/23/21 02:09 37.0 C 78 14 96/64 L 12/23/21 01:05 89 12 91/52 L 12/22/21 23:21 91 H 22 97/62 L 12/22/21 19:42 85 18 114/73 12/22/21 18:26 12/22/21 17:19 36.4 C L 74 20 119/81 Pulse Ox O2 Del Method 12/23/21 15:27 12/23/21 11:35 97 Room Air 12/23/21 07:46 95 Room Air 12/23/21 07:04 12/23/21 03:15 12/23/21 02:09 95 Room Air 12/23/21 01:05 95 Room Air 12/22/21 23:21 98 Room Air 12/22/21 19:42 98 Room Air 12/22/21 18:26 98 Room Air 12/22/21 17:19 100 Room Air Laboratory Results Cardiac Enzymes 12/22/21 Range/Units 17:35 AST 12 L (13-39) U/L Troponin I High Sens < 2.3 (0-14) pg/ml CBC 12/22/21 12/23/21 Range/Units 17:35 09:20 WBC 6.49 6.76 (4.8-10.8) K/ul RBC 5.30 H 4.00 (3.93-5.22) M/uL Hgb 15.7 11.8 L D (12.0-16.0) g/dl Hct 48.5 H 37.1 (34.1-44.9) % Plt Count 164 178 (130-400) K/uL Neut # (Auto) 5.21 5.42 (1.4-6.5) K/uL Lymph # (Auto) 0.92 L 0.69 L (1.2-3.4) K/uL [place] # (Auto) 0.21 L 0.47 (0.24-0.82) K/uL Eos # (Auto) 0.13 0.14 (0-0.50) K/uL Baso # (Auto) 0.01 0.01 (0-0.2) K/uL Comprehensive Metabolic Panel 12/22/21 12/23/21 Range/Units 17:35 09:20 Sodium 139 139 (136-145) mmol/L Potassium 3.6 3.8 (3.5-5.1) mmol/L Chloride 104 107 (98-107) mmol/L Carbon Dioxide 25 29 (21-32) mmol/L BUN 18 17 (6-23) mg/dl Creatinine 0.84 0.82 (0.6-1.2) mg/dl Glucose 96 94 (70-99(Fasting)) mg/dl Calcium 9.5 8.3 L (8.5-10.1) mg/dl AST 12 L (13-39) U/L ALT 11 (7-52) U/L Alkaline Phosphatase 87 (34-104) U/L Total Protein 7.0 (6.0-8.3) gm/dl Albumin 4.6 (3.4-5.0) gm/dl Intake and Output 12/23/21 12/23/21 12/23/21 06:59 14:59 22:59 Intake Total 1060 / 2060 1420 / 1420 Balance 1060 / 2060 1420 / 1420 Intake: IV 1060 / 2060 1120 / 1120 Sodium Chloride 0.9% 1000ML 1, 1000 / 1000 1000 / 1000 000 ml @ 125 mls/hr IV .Q8H [facility]UVIA Rx#:[id number] cefOXitin 2,000 mg In 60 ml @ 60 / 60 120 / 120 100 mls/hr IV Q6H NUVIA Rx#: [id number] Oral 300 / 300 Other: Other Intake Source npo # Unmeasured Voids 2 Weight 64.5 kg Weight Measurement Method Standing Scale Diagnostic Findings Abdominal/Pelvis CT with contrast impression: The appendix is not definitely identified. However, soft tissue stranding and prominent reactive lymph nodes are in the right lower quadrant which may represent secondary findings of appendicitis. No evidence of perforation or abscess formation is seen. Medications Administered Active Medications Generic Name Dose Route Start Last Admin Trade Name Freq PRN Reason Stop Dose Admin Acetaminophen 650 mg 12/23/21 01:58 12/23/21 03:39 Acetaminophen 325 Mg Tab PO 01/22/22 01:57 650 mg Q4H PRN Administration Pain, MILD or Fever Sodium Chloride 1,000 mls @ 125 mls/hr 12/22/21 22:00 12/23/21 14:59 Nss 1000ml IV 01/21/22 21:59 125 mls/hr .Q8H NUVIA Administration Cefoxitin Sodium 2,000 mg in 60 mls @ 100 mls/hr 12/23/21 06:00 12/23/21 12:34 Mefoxin IV 01/02/22 05:59 Infused Q6H NUVIA Infusion Ketorolac Tromethamine 30 mg 12/23/21 01:58 Ketorolac 30 Mg/Ml Vial IV 12/28/21 01:57 Q6H PRN Pain, NOT CONTROLLED BY APAP Nitroglycerin 0.4 mg 12/23/21 01:58 Nitroglycerin Sl 0.4 Mg/Tab Tab SL 01/22/22 01:57 UD PRN Chest Pain Ondansetron HCl 4 mg 12/23/21 01:58 Ondansetron Inj 2 Mg/Ml 2 Ml Vial IV 01/22/22 01:57 Q6H PRN Nausea
[2021-12-23 10:16] LABS: BUN Creatinine Ratio 20.7 (10-20); Calcium 8.3 mg/dl (8.5-10.1); Creatinine Clr Calc Pharmacy 79.1 ml/min; Est GFR (Non-African American) 81.1 ml/min; Magnesium 1.8 mg/dl (1.7-2.4); Potassium 3.8 mmol/L (3.5-5.1)
[2021-12-23 10:43] LABS: Basophils # (auto) 0.01 K/uL (0-0.2); Basophils % (auto) 0.1 %; Eosinophils # (auto) 0.14 K/uL (0-0.50); Eosinophils % (auto) 2.1 %; Hematocrit (blood only) 37.1 % (34.1-44.9); Hemoglobin 11.8 g/dl (12.0-16.0); Immature Granulocytes # (auto) 0.03 K/uL (0.00-0.02); Immature Granulocytes % (auto) 0.4 %; Lymphocytes # (auto) 0.69 K/uL (1.2-3.4); Lymphocytes % (auto) 10.2 %; Mean Corpuscular Hemoglobin 29.5 pg (25.0-34.0); Mean Corpuscular Hgb Conc 31.8 g/dL (32.0-36.0); Mean Corpuscular Volume 92.8 fL (80.0-100.0); Mean Platelet Volume 10.4 fL (9.4-12.3); Monocytes # (auto) 0.47 K/uL (0.24-0.82); Neutrophils # (auto) 5.42 K/uL (1.4-6.5); Neutrophils % (auto) 80.2 %; Platelet Count 178 K/uL (130-400); RDW Coefficient of Variation 13.1 % (11.5-14.5); RDW Standard Deviation 44.7 fL (36.4-46.3); White Blood Count 6.76 K/ul (4.8-10.8)
--- NOTE | 2021-12-23 12:00 | Surgery Consultation ---
Date of Consultation December 23, 2021 Assessment & Plan (1) Acute abdominal pain: (2) Abdominal lymphadenopathy: Plan 56 year-old female with 5-6 day history of lower abdominal pain which increased in severity yesterday afternoon. CT scan of abd/pelvis showing fat stranding in RLQ with subcentimeter lymph nodes in the area however appendix not definitively identified. Normal wbc, afebrile, hemodynamically stable. Exam with soft abdomen, nondistended, no peritonitis, tender in RLQ and lower abdomen. Plan: Discussed with patient her ct scan findings as well as her labs and her exam. CT scan is not definitively seeing her appendix but there is some inflammation in the RLQ (fat stranding). Her wbc is normal and she is afebrile. Would recommend continuing IV antibiotics for now and repeating am labs and closely follow her abdominal exam. If no improvement or if pain increases she may require diagnostic laparoscopy and possible appendectomy. okay for ice chips and sips today NPO after midnight repeat am labs encouraged ambulation continue medical management Dr. Duque has seen and examined pt, agrees with above. History of Present Illness Reason for Consultation: RLQ abdominal pain Requesting Physician: Prasanna Celis DO Attending Physician: Rolando Ty DO History of Present Illness Erin is a 56 year-old female who presented to ED last evening with complaint of lower abdominal pain that began about 5-6 days ago. States pain was mild to moderate but then increased in severity yesterday afternoon after eating. States the pain was severe cramping and caused sweating and nausea. States she never had pain like that before. Thought maybe it was due to constipation and was taking Pepto Bismol however that did not seem to help yesterday. States she had a colonoscopy about 4 years ago which did not show anything of concern. Mother has history of celiacs however no known family history of Crohn's disease or ulcerative colitis. Denies of any blood in stools or black/tarry stools. Denies of any diarrhea. Last bowel movement was yesterday. She states that she is feeling about the same as last evening, no significant improvement in her abdominal pain but states it is not worse. Low appetite. No fevers , no chills. Allergies Allergy/AdvReac Type Severity Reaction Status Date / Time shrimp Allergy Intermediate RASH;LIPS Verified 02/12/21 14:29 SWELL Sulfa (Sulfonamide Allergy Mild "SULFA Verified 02/12/21 14:29 Antibiotics) DRUGS": RASH shellfish derived Allergy Verified 02/12/21 14:29 Home Medications Medication Instructions Recorded Confirmed Type calcium citrate 315 mg-vitamin D3 tab PO 02/02/20 09/19/21 History 5 mcg (200 unit) tablet dextroamphetamine-amphetamine 15 PO .TAKE 1 TABLET DAILY 02/02/20 09/19/21 History mg tablet DIRECTED. multivitamin (Multiple Vitamins 1 tab PO DAILY 02/02/20 09/19/21 History tablet) omega-3 fatty acids PO 02/02/20 09/19/21 History vitamin B complex PO 02/02/20 09/19/21 History doxycycline calcium PO 02/08/20 09/19/21 History estradiol 0.05 mg/24 hr semiweekly 1 patch transdermal 2XWK #24 ea 02/12/21 09/19/21 Rx transdermal patch (Vivelle-Dot) progesterone micronized 200 mg 200 mg PO .COMPLEX #30 caps 07/04/21 09/19/21 Rx capsule Patient History Surgical History (Updated 02/02/20 @ 15:08 by Debra Miranda) History of cryosurgery cervix History of D&C D&E History of detached retina repair History of laparoscopy exploratory History of oral surgery Tooth extraction History of umbilical hernia repair Hx of LASIK Family History (Updated 02/02/20 @ 15:09 by Debra Miranda) Grandfather (Paternal) Coronary heart disease Grandfather (Maternal) Coronary heart disease Father Diaphragmatic hernia Denies family history of Ovarian cancer Breast cancer Colorectal cancer Social History (Updated 02/12/21 @ 14:30 by ENRICO Farah) Smoking Status: Never smoker Second Hand Exposure: No; Do You Dip or Chew Tobacco: No; Hx Alcohol Use: Yes Alcohol type: wine Hx Substance Use: No Preferred Language: Bur[place]ian Psychiatric Aide Required: No Beliefs That Will Affect Care: None Current Living Situation: Family Current Living Situation Comment: Single family home with and kids Other Information That Helps Us Care for You: Yes (Increase in lower GI issues in last year) Feels Safe at Home: Yes Safety Concerns: Feels Safe At This Time Assistive Devices: None Review of Systems Review of Systems: All systems reviewed & are unremarkable except as noted in HPI & below Physical Exam Constitutional: WD/WN, vitals as above no acute distress and not ill appearing Neck: normal visual inspection and trachea midline Respiratory: normal respiratory effort; no respiratory distress and no labored breathing Gastrointestinal (Abdomen): Inspection/Auscultation: abdomen normal to inspection; abdomen not distended Percussion/Palpation: + abdomen tender (generalized tenderness but more in RLQ) and abdomen soft; no guarding and abdomen not rigid No peritonitis Skin: no rashes, warm and dry Psychiatric: A+Ox3, euthymic affect Results & Data ([facility]) Vital Signs (Past 12 Hours) Vital Signs Temp Pulse Pulse Pulse Resp BP Pulse Ox 12/23/21 11:35 36.7 C 77 12 98/63 L 97 12/23/21 07:46 36.6 C 74 12 96/52 L 95 12/23/21 07:04 74 12/23/21 03:15 80 12/23/21 02:09 37.0 C 78 14 96/64 L 95 12/23/21 01:05 89 12 91/52 L 95 O2 Del Method 12/23/21 11:35 Room Air 12/23/21 07:46 Room Air 12/23/21 07:04 12/23/21 03:15 12/23/21 02:09 Room Air 12/23/21 01:05 Room Air Laboratory Results 12/23/21 12/23/21 12/23/21 Range/Units 09:20 09:20 09:20 WBC 6.76 (4.8-10.8) K/ul RBC 4.00 (3.93-5.22) M/uL Hgb 11.8 L D (12.0-16.0) g/dl Hct 37.1 (34.1-44.9) % MCV 92.8 (80.0-100.0) fL MCH 29.5 (25.0-34.0) pg MCHC 31.8 L (32.0-36.0) g/dL RDW Std Deviation 44.7 (36.4-46.3) fL RDW Coeff of Jade 13.1 (11.5-14.5) % Plt Count 178 (130-400) K/uL MPV 10.4 (9.4-12.3) fL Immature Gran % (Auto) 0.4 % Neut % (Auto) 80.2 % Lymph % (Auto) 10.2 % Archuleta % (Auto) 7.0 % Eos % (Auto) 2.1 % Baso % (Auto) 0.1 % Neut # (Auto) 5.42 (1.4-6.5) K/uL Lymph # (Auto) 0.69 L (1.2-3.4) K/uL Archuleta # (Auto) 0.47 (0.24-0.82) K/uL Eos # (Auto) 0.14 (0-0.50) K/uL Baso # (Auto) 0.01 (0-0.2) K/uL Immature Gran # (Auto) 0.03 H (0.00-0.02) K/uL Sodium 139 (136-145) mmol/L Potassium 3.8 (3.5-5.1) mmol/L Chloride 107 (98-107) mmol/L Carbon Dioxide 29 (21-32) mmol/L Anion Gap 3 (3-11) BUN 17 (6-23) mg/dl Creatinine 0.82 (0.6-1.2) mg/dl Est Cr Clr Drug Dosing 79.1 ml/min Est GFR ( Amer) 94.0 ml/min Est GFR (Non-Af Amer) 81.1 ml/min BUN/Creatinine Ratio 20.7 H (10-20) Glucose 94 (70-99(Fasting)) mg/dl Calcium 8.3 L (8.5-10.1) mg/dl Magnesium 1.8 (1.7-2.4) mg/dl Total Bilirubin (0.2-1.0) mg/dl AST (13-39) U/L ALT (7-52) U/L Alkaline Phosphatase (34-104) U/L Troponin I High Sens (0-14) pg/ml Total Protein (6.0-8.3) gm/dl Albumin (3.4-5.0) gm/dl Globulin (2.5-4.0) gm/dl Albumin/Globulin Ratio (0.9-2) Lipase (11-82) U/L Procalcitonin 3.22 H (0-0.5) ng/ml Urine Color Urine Appearance (Clear) Urine pH (4.5-7.5) Ur Specific Schoolcraft (1.000-1.030) Urine Protein (Negative) Urine Glucose (UA) (Negative) Urine Ketones (Negative) Urine Blood (Negative) Urine Nitrite (Negative) Urine Bilirubin (Negative) Urine Urobilinogen (Negative) Ur Leukocyte Esterase (Negative) Urine WBC (Auto) (0-5) /hpf Urine RBC (Auto) (0-4) /hpf U Hyaline Cast (Auto) (0-5) /lpf U Epithel Cells (Auto) (0-5) /lpf Urine Bacteria (Auto) (Negative) SARS-CoV-2, RNA, NAAT (NEGATIVE) 12/23/21 12/22/21 12/22/21 Range/Units 01:00 21:04 17:35 WBC (4.8-10.8) K/ul RBC (3.93-5.22) M/uL Hgb (12.0-16.0) g/dl Hct (34.1-44.9) % MCV (80.0-100.0) fL MCH (25.0-34.0) pg MCHC (32.0-36.0) g/dL RDW Std Deviation (36.4-46.3) fL RDW Coeff of Jade (11.5-14.5) % Plt Count (130-400) K/uL MPV (9.4-12.3) fL Immature Gran % (Auto) % Neut % (Auto) % Lymph % (Auto) % Archuleta % (Auto) % Eos % (Auto) % Baso % (Auto) % Neut # (Auto) (1.4-6.5) K/uL Lymph # (Auto) (1.2-3.4) K/uL [place]ta # (Auto) (0.24-0.82) K/uL Eos # (Auto) (0-0.50) K/uL Baso # (Auto) (0-0.2) K/uL Immature Gran # (Auto) (0.00-0.02) K/uL Sodium 139 (136-145) mmol/L Potassium 3.6 (3.5-5.1) mmol/L Chloride 104 (98-107) mmol/L Carbon Dioxide 25 (21-32) mmol/L Anion Gap 10 (3-11) BUN 18 (6-23) mg/dl Creatinine 0.84 (0.6-1.2) mg/dl Est Cr Clr Drug Dosing 77.2 ml/min Est GFR ( Amer) 91.3 ml/min Est GFR (Non-Af Amer) 78.8 ml/min BUN/Creatinine Ratio 21.4 H (10-20) Glucose 96 (70-99(Fasting)) mg/dl Calcium 9.5 (8.5-10.1) mg/dl Magnesium (1.7-2.4) mg/dl Total Bilirubin 0.5 (0.2-1.0) mg/dl AST 12 L (13-39) U/L ALT 11 (7-52) U/L Alkaline Phosphatase 87 (34-104) U/L Troponin I High Sens < 2.3 (0-14) pg/ml Total Protein 7.0 (6.0-8.3) gm/dl Albumin 4.6 (3.4-5.0) gm/dl Globulin 2.4 L (2.5-4.0) gm/dl Albumin/Globulin Ratio 1.9 (0.9-2) Lipase 13 (11-82) U/L Procalcitonin (0-0.5) ng/ml Urine Color Yellow Urine Appearance Clear (Clear) Urine pH 5.5 (4.5-7.5) Ur Specific School[place] 1.023 (1.000-1.030) Urine Protein Negative (Negative) Urine Glucose (UA) Negative (Negative) Urine Ketones Negative (Negative) Urine Blood Negative (Negative) Urine Nitrite Negative (Negative) Urine Bilirubin Negative (Negative) Urine Urobilinogen Negative (Negative) Ur Leukocyte Esterase Trace H (Negative) Urine WBC (Auto) 1-5 (0-5) /hpf Urine RBC (Auto) 0-4 (0-4) /hpf U Hyaline Cast (Auto) 5-10 H (0-5) /lpf U Epithel Cells (Auto) >30 H (0-5) /lpf Urine Bacteria (Auto) 1+ H (Negative) SARS-CoV-2, RNA, NAAT NEGATIVE (NEGATIVE) 12/22/21 Range/Units 17:35 WBC 6.49 (4.8-10.8) K/ul RBC 5.30 H (3.93-5.22) M/uL Hgb 15.7 (12.0-16.0) g/dl Hct 48.5 H (34.1-44.9) % MCV 91.5 (80.0-100.0) fL MCH 29.6 (25.0-34.0) pg MCHC 32.4 (32.0-36.0) g/dL RDW Std Deviation 43.8 (36.4-46.3) fL RDW Coeff of Jade 12.9 (11.5-14.5) % Plt Count 164 (130-400) K/uL MPV 10.8 (9.4-12.3) fL Immature Gran % (Auto) 0.2 % Neut % (Auto) 80.2 % Lymph % (Auto) 14.2 % Archule[place] % (Auto) 3.2 % Eos % (Auto) 2.0 % Baso % (Auto) 0.2 % Neut # (Auto) 5.21 (1.4-6.5) K/uL Lymph # (Auto) 0.92 L (1.2-3.4) K/uL Arch[place]ta # (Auto) 0.21 L (0.24-0.82) K/uL Eos # (Auto) 0.13 (0-0.50) K/uL Baso # (Auto) 0.01 (0-0.2) K/uL Immature Gran # (Auto) 0.01 (0.00-0.02) K/uL Sodium (136-145) mmol/L Potassium (3.5-5.1) mmol/L Chloride (98-107) mmol/L Carbon Dioxide (21-32) mmol/L Anion Gap (3-11) BUN (6-23) mg/dl Creatinine (0.6-1.2) mg/dl Est Cr Clr Drug Dosing ml/min Est GFR ( Amer) ml/min Est GFR (Non-Af Amer) ml/min BUN/Creatinine Ratio (10-20) Glucose (70-99(Fasting)) mg/dl Calcium (8.5-10.1) mg/dl Magnesium (1.7-2.4) mg/dl Total Bilirubin (0.2-1.0) mg/dl AST (13-39) U/L ALT (7-52) U/L Alkaline Phosphatase (34-104) U/L Troponin I High Sens (0-14) pg/ml Total Protein (6.0-8.3) gm/dl Albumin (3.4-5.0) gm/dl Globulin (2.5-4.0) gm/dl Albumin/Globulin Ratio (0.9-2) Lipase (11-82) U/L Procalcitonin (0-0.5) ng/ml Urine Color Urine Appearance (Clear) Urine pH (4.5-7.5) Ur Specific School[place] (1.000-1.030) Urine Protein (Negative) Urine Glucose (UA) (Negative) Urine Ketones (Negative) Urine Blood (Negative) Urine Nitrite (Negative) Urine Bilirubin (Negative) Urine Urobilinogen (Negative) Ur Leukocyte Esterase (Negative) Urine WBC (Auto) (0-5) /hpf Urine RBC (Auto) (0-4) /hpf U Hyaline Cast (Auto) (0-5) /lpf U Epithel Cells (Auto) (0-5) /lpf Urine Bacteria (Auto) (Negative) SARS-CoV-2, RNA, NAAT (NEGATIVE) Diagnostic Findings CT abd pelvis IV con only CLINICAL HISTORY: diffuse lower/RLQ pain, nausea TECHNIQUE: Helical axial images of the abdomen and pelvis were obtained and displayed. Automated dose lowering techniques and/or adjustment according to patient size were utilized for this exam. This exam was performed with intravenous contrast. CT DOSE: 257.82 mGy.cm COMPARISON: None available at the time of this dictation. FINDINGS: Lower chest: Bibasilar atelectasis versus scarring is seen. Liver: Focal fatty changes are noted about the falciform ligament. Gallbladder and biliary tree: No calcified gallstones. Normal caliber wall. No intra- or extrahepatic biliary ductal dilation. Pancreas: Unremarkable, no focal lesions. Spleen: Unremarkable. Adrenals: Unremarkable. Kidneys and ureters: Unremarkable. Bladder: Unremarkable. Reproductive organs: Unremarkable. Bowel: Extensive diverticulosis is seen. There is a moderate hiatal hernia. The appendix is not definitely seen. Lymph nodes Retroperitoneal: Unremarkable. Pelvic: Unremarkable. Mesenteric: Prominent subcentimeter lymph nodes are in the right lower quadrant. Peritoneum: Fat stranding is in the right lower quadrant. There is a small amount of free fluid in the pelvis. Vessels: Unremarkable. Abdominal wall: Unremarkable. Bones: Unremarkable. IMPRESSION: The appendix is not definitely identified. However, soft tissue stranding and prominent reactive lymph nodes are in the right lower quadrant which may represent secondary findings of appendicitis. No evidence of perforation or abscess formation is seen.
--- NOTE | 2021-12-23 13:51 | Electrocardiogram Report ---
Test Reason : Blood Pressure : / mmHG Vent. Rate : 084 BPM Atrial Rate : 084 BPM P-R Int : 176 ms QRS Dur : 090 ms QT Int : 382 ms P-R-T Axes : 062 091 010 degrees QTc Int : 451 ms Normal sinus rhythm Rightward axis T wave abnormality, consider inferior ischemia T wave abnormality, consider anterolateral ischemia Abnormal ECG When compared with ECG of 17-MAR-2017 10:07, T wave inversion now evident in Anterior leads Confirmed by Aldair Dobson ([id number]) on 12/23/2021 1:51:24 PM Referred By: REFERRED SELF Confirmed By:Aldair Dobson
[2021-12-23] MEDS: metroNIDAZOLE 500 MG/100 ML BAG IV SCH (18:45)
--- NOTE | 2021-12-23 18:56 | Billing Data ---
Date of Service December 23, 2021 Coding Level of Care Code 18641 Subseq Obs Care Lvl 3
--- NOTE | 2021-12-23 19:42 | Billing Data ---
Date of Service December 23, 2021 Coding Level of Care Code INT OBSERVATION CARE 70M LVL 3
[2021-12-24] MEDS: metroNIDAZOLE 500 MG/100 ML BAG IV SCH ×2 (01:41→08:57)
[2021-12-24] MEDS: cefOXitin 2,000 MG/60 ML BAG IV SCH ×2 (05:36→11:48)
[2021-12-24 06:26] LABS: Basophils # (auto) 0.02 K/uL (0-0.2); Basophils % (auto) 0.3 %; Eosinophils # (auto) 0.24 K/uL (0-0.50); Hematocrit (blood only) 36.7 % (34.1-44.9); Hemoglobin 11.6 g/dl (12.0-16.0); Immature Granulocytes # (auto) 0.01 K/uL (0.00-0.02); Immature Granulocytes % (auto) 0.2 %; Lymphocytes # (auto) 0.58 K/uL (1.2-3.4); Lymphocytes % (auto) 9.6 %; Mean Corpuscular Hemoglobin 29.7 pg (25.0-34.0); Mean Corpuscular Hgb Conc 31.6 g/dL (32.0-36.0); Mean Corpuscular Volume 93.9 fL (80.0-100.0); Mean Platelet Volume 9.8 fL (9.4-12.3); Monocytes # (auto) 0.33 K/uL (0.24-0.82); Monocytes % (auto) 5.5 %; Neutrophils # (auto) 4.87 K/uL (1.4-6.5); Neutrophils % (auto) 80.4 %; Platelet Count 178 K/uL (130-400); RDW Coefficient of Variation 12.8 % (11.5-14.5); Red Blood Count 3.91 M/uL (3.93-5.22); White Blood Count 6.05 K/ul (4.8-10.8)
[2021-12-24 06:33] LABS: Calcium 8.3 mg/dl (8.5-10.1); Creatinine Clr Calc Pharmacy 78.2 ml/min; Est GFR (African American) 92.7 ml/min; Est GFR (Non-African American) 79.9 ml/min; Potassium 3.5 mmol/L (3.5-5.1)
[2021-12-24] MEDS: SODIUM CHLORIDE 0.9% 1000ML 1,000 ML IV SCH (08:57)
--- NOTE | 2021-12-24 09:49 | Hospitalist Progress Note ---
Date of Service December 24, 2021 Assessment & Plan (1) Acute abdominal pain: Plan: 56 yo female with no significant PMHx presented with 4-5 days abdominal pain with exacerbation this morning. -presented with 4-5 days abdominal pain in exacerbation this morning. Afebrile. No leukocytosis. Case was discussed amongst ED provider and general surgery Dr. Christopher who said no urgent surgical intervention and recommended admitting for observation on IV abx. -UA dirty catch, possibly infectious -trops neg -CT A/P: soft tissue stranding and prominent lymph nodes in the right lower quadrant which may represent secondary findings of appendicitis, though the appendix is not definitely identified. -NPO for now, IVF, pain relief, anti-nausea -cefoxitin started in ED. Cont. 2g cefoxitin q6h which includes anaerobic coverage -general surgery consulted - no surgical intervention indicated at this time. Recommended continued observation and IV abx with repeat AM CBC and CMP -repeat physical exams to assess symptom progression -US tomorrow if no improvement to sx Assessment and Plan: Acute abdominal pain/possible early appendicitis- CT suggestive of possible secondary findings of appendicitis Surgery was consulted by the ED, and asked that the patient be admitted to medicine overnight N.p.o. Cefoxitin 2 g IV every 6 hours NSS + KCl 20 mEq at 100 mils per hour Zofran 4 mg IV every 6 hours as needed Famotidine 2 mg IV twice daily (2) Abdominal lymphadenopathy: Plan: Noted on abdominal/pelvis CT. DDx: appendicitis, mesenteric lymphadenitis. See plan above. Plan DVT ppx: SCDs FEN/GI: NPO Code Status: full Dispo: med tele Admission and Anticipated Discharge Date Admission Date: December 23, 2021 Subjective 56 year old female with no significant past medical history presenting with 4-5 days of abdominal pain with exacerbation 12/22 which prompted her to come in. Reported improvement yesterday from initial presentation and endorsed continued improvement today. Pain has improved 75% from yesterday and there is reportedly more pressure than pain at this point. Patient requested Toradol and Zofran in the edi specialist this morning, but has not felt in pain or nausea since. She described the feeling of "turning a corner" at 4am, at which point she reported that much of her pain dissipated. Pain that remains is still localized between the umbilicus and pubic area with radiation to the right more than the left. Distention has resolved from yesterday. Review of Systems Review of Systems: Constitutional: No fever, No chills, No fatigue. Respiratory: No shortness of breath, No cough, No wheezing. Cardiovascular: No lightheadedness/presyncope, No chest pain, No palpitations. Gastrointestinal: No nausea, No vomiting, No diarrhea, No constipation, No heartburn. Sub-umbilical, suprapubic abdominal pain that radiates to the right and slightly to the left. Does not endorse specific localization to the right side. No distention. Musculoskeletal: No back pain, No neck pain, No joint pain, No muscle pain, No decreased range of motion, No trauma. Skin: No rash, No pruritus, No breakdown. Neurologic: No numbness, No tingling, No headache. Physical Exam Physical Exam: General: Alert and oriented, No acute distress. HEENT: Normocephalic, Nl gross hearing, moist oral mucosa. Cardiovascular: RRR. No M/R/G. Respiratory: Clear to auscultation; Respirations non-labored; Breath sounds equal. No wheezes, rales, rhonchi. Gastrointestinal: Soft. Slight distention. Decreased bowel sounds in lower quadrants. Mild tenderness to palpation in the lower quadrants - tenderness is concentrated centrally between the umbilicus and pubis. Mild tenderness in the right lower quadrant, greater than the left. No rebound tenderness. Negative McBurney's Point, Rovsing's Sign, Obturator Sign, Psoas Sign. Musculoskeletal: Normal range of motion, normal strength. Neurologic: Normal sensory, Normal motor function, CN II-XII grossly intact. Integumentary: Warm, Dry. Psych: Mood-affect congruence. Speech is of normal pace and content Results & Data Results & Data ([facility]) Vital Signs (Past 12 Hours) Vital Signs Temp Pulse Pulse Resp BP Pulse Ox O2 Del Method 12/24/21 07:35 37.4 C 81 18 100/65 95 Room Air 12/24/21 07:03 77 12/24/21 03:24 37.2 C 82 16 98/66 L 94 Room Air 12/24/21 01:48 88 12/23/21 22:38 37.5 C 83 18 125/78 97 Room Air
--- NOTE | 2021-12-24 12:16 | Surgery Progress Note ---
Date of Service December 24, 2021 Assessment & Plan (1) Acute abdominal pain: (2) Abdominal lymphadenopathy: Plan 56 year-old female with 5-6 day history of lower abdominal pain which increased in severity yesterday afternoon. CT scan of abd/pelvis showing fat stranding in RLQ with subcentimeter lymph nodes in the area however appendix not definitively identified. 12/24/2021: Remains afebrile, no leukocytosis. Abdominal pain significantly improved since adding IV Flagyl. Plan: Given the improvement of her abdominal pain with antibiotics would continue such treatment and avoid surgical intervention. Would recommend advancing diet to see how she tolerates Consider 3 to 5 days of oral antibiotics at home if this is an episode of early acute appendicitis. 2-week follow-up with Dr. Duque in general surgery Okay from surgical standpoint to discharge home if does well with diet advancement Our services signing off please call with questions or concerns Patient seen in collaboration with DR. Duque during rounds who agrees with above. Admission and Anticipated Discharge Date Admission Date: December 23, 2021 Subjective Feeling much better today since the second antibiotic was added last evening. Abdominal pain has significantly improved. Able to move around much easier. Denies of any nausea or vomiting. Passing gas. Physical Exam Constitutional: WD/WN, vitals as above no acute distress and not ill appearing Neck: normal visual inspection and trachea midline Respiratory: normal respiratory effort; no respiratory distress and no labored breathing Gastrointestinal (Abdomen): Inspection/Auscultation: abdomen normal to inspection and normal bowel sounds; abdomen not distended Percussion/Palpa tion: + abdomen tender (Mild tenderness in the right lower quadrant however significantly improved ) and abdomen soft; no guarding, abdomen not rigid and abdomen not firm Skin: no rashes, warm and dry Psychiatric: A+Ox3, euthymic affect Results & Data ([facility]) Vital Signs (Past 12 Hours) Vital Signs Temp Pulse Pulse Pulse Pulse Resp BP 12/24/21 12:04 36.8 C 89 73 76 18 112/73 12/24/21 11:14 36.8 C 73 18 112/73 12/24/21 07:35 37.4 C 81 18 100/65 12/24/21 07:03 77 12/24/21 03:24 37.2 C 82 16 98/66 L 12/24/21 01:48 88 Pulse Ox O2 Del Method 12/24/21 12:04 96 12/24/21 11:14 96 12/24/21 07:35 95 Room Air 12/24/21 07:03 12/24/21 03:24 94 Room Air 12/24/21 01:48 Laboratory Results 12/24/21 12/24/21 Range/Units 05:53 05:53 WBC 6.05 (4.8-10.8) K/ul RBC 3.91 L (3.93-5.22) M/uL Hgb 11.6 L (12.0-16.0) g/dl Hct 36.7 (34.1-44.9) % MCV 93.9 (80.0-100.0) fL MCH 29.7 (25.0-34.0) pg MCHC 31.6 L (32.0-36.0) g/dL RDW Std Deviation 44.0 (36.4-46.3) fL RDW Coeff of Jade 12.8 (11.5-14.5) % Plt Count 178 (130-400) K/uL MPV 9.8 (9.4-12.3) fL Immature Gran % (Auto) 0.2 % Neut % (Auto) 80.4 % Lymph % (Auto) 9.6 % [place] % (Auto) 5.5 % Eos % (Auto) 4.0 % Baso % (Auto) 0.3 % Neut # (Auto) 4.87 (1.4-6.5) K/uL Lymph # (Auto) 0.58 L (1.2-3.4) K/uL [place] # (Auto) 0.33 (0.24-0.82) K/uL Eos # (Auto) 0.24 (0-0.50) K/uL Baso # (Auto) 0.02 (0-0.2) K/uL Immature Gran # (Auto) 0.01 (0.00-0.02) K/uL Sodium 140 (136-145) mmol/L Potassium 3.5 (3.5-5.1) mmol/L Chloride 111 H (98-107) mmol/L Carbon Dioxide 22 (21-32) mmol/L Anion Gap 7 (3-11) BUN 10 (6-23) mg/dl Creatinine 0.83 (0.6-1.2) mg/dl Est Cr Clr Drug Dosing 78.2 ml/min Est GFR ( Amer) 92.7 ml/min Est GFR (Non-Af Amer) 79.9 ml/min BUN/Creatinine Ratio 12.0 (10-20) Glucose 70 (70-99(Fasting)) mg/dl Calcium 8.3 L (8.5-10.1) mg/dl
--- NOTE | 2021-12-24 17:30 | Discharge Summary ---
Date of Service December 24, 2021 Admission HPI Per Admitting Provider 56 yo female with no significant PMHx presented with 4-5 days abdominal pain with exacerbation this morning. Abdominal pain located midline between the bellybutton and the pelvic bone with some radiation to the right lower quadrant. Early this morning she had a sudden exacerbation of her pain symptoms and tried taking Pepto-Bismol which did not help much. She had some associated diaphoresis and nausea. Otherwise denies fevers, chills, fatigue, chest pain, shortness of breath, vomiting, dysuria, blood in stool, headache, back pain, extremity numbness/tingling, constipation, diarrhea. Has not had much of an a ppetite the last couple of days. She did receive IV fentanyl and Zofran from EMS which did improve her pain symptoms from a 9 to a 6 out of 10. Admission Exam Per Admitting Provider Constitutional: Well-developed, well-nourished patient, in no acute distress, pleasant, intact memory. Vitals as above. HEENT: No scleral injection or discharge. Moist mucous membranes. Clear oropharynx without exudate. Neck: Supple without lymphadenopathy or thyromegaly. Trachea midline. Lungs: Clear to auscultation bilaterally with good effort. Cardiac: Regular rate and rhythm. No murmurs. 2+ peripheral pulses. No LE edema. Abdomen: Bowel sounds present. Soft and nondistended.Moderate tenderness RUQ and midline inferior to umbilicus. No guarding or rebound tenderness.No hepatosplenomegaly. MSK: No cyanosis or clubbing. Extremities motor strength 5/5. Skin: No rashes, warm, dry. Neurologic: No focal deficits. PERRL. Principal Diagnosis Appendicitis Discharge Exam General: Alert and oriented, No acute distress. HEENT: Normocephalic, Nl gross hearing, moist oral mucosa. Cardiovascular: RRR. No M/R/G. Respiratory: Clear to auscultation; Respirations non-labored; Breath sounds equal. No wheezes, rales, rhonchi. Gastrointestinal: Soft. Slight distention. Normal bowel sounds in all quadrants. Mild tenderness to palpation in the lower quadrants - tenderness is concentrated centrally between the umbilicus and pubis. Mild tenderness in the right lower quadrant, greater than the left. No rebound tenderness. Negative McBurney's Point, Rovsing's Sign, Obturator Sign, Psoas Sign. Musculoskeletal: Normal range of motion, normal strength. Neurologic: Normal sensory, Normal motor function, CN II-XII grossly intact. Integumentary: Warm, Dry. Psych: Appropriate mood and affect. Speech is of normal pace and content Discharge Data Allergies Allergy/AdvReac Type Severity Reaction Status Date / Time shrimp Allergy Intermediate RASH;LIPS Verified 02/12/21 14:29 SWELL Sulfa (Sulfonamide Allergy Mild "SULFA Verified 02/12/21 14:29 Antibiotics) DRUGS": RASH shellfish derived Allergy Verified 02/12/21 14:29 Consultations 12/24/2021: Remains afebrile, no leukocytosis. Abdominal pain significantly improved since adding IV Flagyl. Plan: Given the improvement of her abdominal pain with antibiotics would continue such treatment and avoid surgical intervention. Would recommend advancing diet to see how she tolerates Consider 3 to 5 days of oral antibiotics at home if this is an episode of early acute appendicitis. 2-week follow-up with Dr. Duque in general surgery Okay from surgical standpoint to discharge home if does well with diet advancement Our services signing off please call with questions or concerns Ordered Studies Abdomen/Pelvis CT 12/22/21 17:53 CT abd pelvis IV con only CLINICAL HISTORY: diffuse lower/RLQ pain, nausea TECHNIQUE: Helical axial images of the abdomen and pelvis were obtained and displayed. Automated dose lowering techniques and/or adjustment according to patient size were utilized for this exam. This exam was performed with intravenous contrast. CT DOSE: 257.82 mGy.cm COMPARISON: None available at the time of this dictation. FINDINGS: Lower chest: Bibasilar atelectasis versus scarring is seen. Liver: Focal fatty changes are noted about the falciform ligament. Gallbladder and biliary tree: No calcified gallstones. Normal caliber wall. No intra- or extrahepatic biliary ductal dilation. Pancreas: Unremarkable, no focal lesions. Spleen: Unremarkable. Adrenals: Unremarkable. Kidneys and ureters: Unremarkable. Bladder: Unremarkable. Reproductive organs: Unremarkable. Bowel: Extensive diverticulosis is seen. There is a moderate hiatal hernia. The appendix is not definitely seen. Lymph nodes Retroperitoneal: Unremarkable. Pelvic: Unremarkable. Mesenteric: Prominent subcentimeter lymph nodes are in the right lower quadrant. Peritoneum: Fat stranding is in the right lower quadrant. There is a small amount of free fluid in the pelvis. Vessels: Unremarkable. Abdominal wall: Unremarkable. Bones: Unremarkable. IMPRESSION: The appendix is not definitely identified. However, soft tissue stranding and prominent reactive lymph nodes are in the right lower quadrant which may represent secondary findings of appendicitis. No evidence of perforation or abscess formation is seen. ACT 112: Negative or not required by law. Electronically signed by: Lev Guidry M.D. 12/22/2021 8:27 PM Hospital Course (1) Acute abdominal pain: 56 yo female with no significant PMHx presented with 4-5 days abdominal pain with exacerbation. -presented with 4-5 days abdominal pain in exacerbation this morning. Afebrile. No leukocytosis. Case was discussed amongst ED provider and general surgery who recommended observation and IV abx -patient showed significant improvement after abx intervention and on re- evaluation surgery continued to recommend no surgical intervention. Will follow- up with general surgery in 2 weeks. -UA dirty catch, possibly infectious -trops neg -CT A/P: soft tissue stranding and prominent lymph nodes in the right lower quadrant which may represent secondary findings of appendicitis, though the appendix is not definitely identified. -cefoxitin started in ED, later added metronidazole for added anaerobic coverage. On discharge transitioned to PO cefdinir and Flagyl - NPO until day of discharge, IVF, pain relief, zofran (2) Abdominal lymphadenopathy: Noted on abdominal/pelvis CT. DDx: appendicitis, mesenteric lymphadenitis. See plan above. Plan Patient was full code this admission. Total Time Total Time Spent Total Time Spent (In Minutes): Less than 30 Discharge Plan Discharge Items Patient Disposition: Home - Self-Care Reason For Visit: ABDOMINAL PAIN Discharge Diagnosis: Abdominal pain with abdominal lymphadenopathy Condition on Discharge: Good Activity: Resume your previous activity Non-emergency contact: Primary Care Provider Call non-emergency contact if: you have any medication questions, your symptoms worsen and your pain is worsening Follow-up/Referrals: Shiva Guthrie MD [Primary Care Provider] - 12/25/21 4:10 pm () Sasha Duque MD [Physician] - (2 weeks ) Diet: Regular Addtl Attending Provider Instructions: You were admitted to the hospital for abdominal pain. Your CT scan showing some enlarged lymph nodes in your abdomen. Your pain could be from a virus that has caused inflammation of the lymph nodes in your abdomen. Your pain could also be from appendicitis and the antibiotics appear to be helping with your pain. Your pain is improving the surgeons don't feel surgery is necessary at this time, but we would like you to follow up with them in 2 weeks. We will continue with the antibiotics at home. I would like you to take cefdinir (twice a day) in addition to metronidazole (every 8 hours, approximately) for 6 more days. Start this evening, approx 6pm. I extended the duration by a day because the metronidazole was added on intermediate through the hospital course. If you pain comes back please call your primary care office or come back to the ED as it is possible you need re-evaluation for surgical intervention. Visit the ED if severe symptoms. Follow-up appointments: We have requested a follow-up appointment with your primary care physician within one week of discharge. Please call their office if you do not hear from them - We will also request an appointment with the surgeons office. Pending Studies at Discharge: No Stand-Alone Forms: My [facility] Medications and DC Order Prescriptions: New cefdinir 300 mg capsule 300 mg PO BID 6 Days Qty: 12 0RF metronidazole 500 mg tablet 500 mg PO Q8H 6 Days Qty: 18 0RF Continued progesterone micronized 200 mg capsule 200 mg PO .COMPLEX Qty: 30 2RF Rx Instructions: 200 mg PO Take 1 tablet daily ten days each month; estradiol [Vivelle-Dot] 0.05 mg/24 hr patch semiweekly 1 patch transdermal 2XWK Qty: 24 3RF dextroamphetamine-amphetamine 15 mg tablet PO .TAKE 1 TABLET DAILY DIRECTED. calcium citrate-vitamin D3 315 mg-5 mcg (200 unit) tablet PO vitamin B complex PO omega-3 fatty acids PO multivitamin [Multiple Vitamins] Tablet 1 tab PO DAILY doxycycline calcium PO Discharge Orders: Discharge Order (Routine); Ordered 12/24/21 Ordered By: Danny Kumar Admission Data Admit Date/Time: 12/23/21 00:21 Attending Provider: Rolando Ty Admit Provider: Ilya Celis Primary Care Provider: Shiva Guthrie Other Providers: Manoj Mac ; Romeo Christopher Other Interventions: Discharge Summary Assessment (RN) Last Done: 12/24/21 12:04 Supervising Physician Co-Signing Physician Notes I personally examined the patient and verified all lozoya points of history and exam, discussed case, and agree with decision making with A Meci MS2 Belly pain much better. Feels up to going home. Surgical input appreciated. Vitals noted, in general she is awake and alert pleasant no distress. HEENT normocephalic atraumatic mucous membranes moist. Breathing unlabored no accessory muscle use good effort. Skin shows no rashes no pallor or icterus. Abdomen much softer barely tender, mild right lower quadrant tenderness but no guarding rebound or rigidity, and really minimal compared to yesterday. Right lower quadrant pain/abdominal painbiggest differential being appendicitis versus mesenteric adenitis. Improving nicely. Safe for home. P.o. antibiotics. Outpatient surgical follow-up.
--- NOTE | 2021-12-24 20:09 | Billing Data ---
Date of Service December 24, 2021 Coding Level of Care Code 58908 OBS Care - Discharge
== END 2021-12-24 14:20 | disposition home or self-care (01) ==
LOC: ED 17:13 → 2N 17:13 → SUATTDRO 12-23 00:21 → 2N 12-23 01:37
DX: Z91.013 Allergy to seafood; R10.31 Right lower quadrant pain; Z79.899 Other long term (current) drug therapy; R59.0 Localized enlarged lymph nodes; Z88.2 Allergy status to sulfonamides